=== PATIENT | female | born 1960 | race Caucasian/White ===

== ENCOUNTER 2016-07-12 08:06 | Inpatient (IN) | payer BC ==
[~2016-07-12 08:06] MED LIST: COZAAR50 M1 PO; HYDROCHLOROTH12.5 M3 PO; OXYCONTIN10 M2 PO; PERCOCET 5-3251 EACH PO; PREMARIN1.25 M1 PO
[2016-07-13] MEDS ORDERED: PERCOCET 5-3251 EACH PO (14:11)
== END 2016-07-13 14:55 | DRG 328 ==
LOC: SHSC 08:06 → ORW 10:09 → PACU 11:55 → 5WD 13:40
PROVIDERS: ADMIT Surgery
PROC: 0BQR0ZZ (ICD-10-PCS; principal; 2016-07-12)
PROC: 0BJT4ZZ Inspection of Diaphragm, Percutaneous Endoscopic Approach (ICD-10-PCS; 2016-07-12)
PROC: 0BQS0ZZ (ICD-10-PCS; 2016-07-12)
DX: K21.9 Gastro-esophageal reflux disease without esophagitis (principal); I10 Essential (primary) hypertension; K44.9 Diaphragmatic hernia without obstruction or gangrene; K22.2 Esophageal obstruction; Z90.710 Acquired absence of both cervix and uterus
CPT/HCPCS: C9290; J0690; J1650; J2250; J2270; J2405; J2765; J3010; J7030; J7999